=== PATIENT | female | born 1990 | race African-American/Black ===

== ENCOUNTER 2024-03-10 11:07 | Emergency (ER) | payer MEDICAID ==
[~2024-03-10] VITALS: Ht 170.2 cm; Wt 109.0 kg
[2024-03-10 11:23] VITALS: O2SAT 100
[2024-03-10] MEDS: PREDNISONE 20MG TABLET PO ONE (11:58)
[2024-03-10 12:07] VITALS: PULSE 100; RESP 20
[2024-03-10] MEDS: ALBUTEROL (0.083%) 2.5MG/3ML NEB HHN ONE (12:07)
[2024-03-10 12:15] VITALS: BP 122/87; PULSE 95; RESP 19; TEMP 97.8
[2024-03-10] MEDS ORDERED: P50 MT (12:22)
[2024-03-10] MEDS ORDERED: ALBU18HF2 IH (12:22)
== END 2024-03-10 12:35 | disposition home or self-care (01) ==
LOC: ER 11:18
DX: R05.9 Cough, unspecified (principal); R06.02 Shortness of breath; J45.909 Unspecified asthma, uncomplicated; Z91.013 Allergy to seafood; Z98.890 Other specified postprocedural states
CPT/HCPCS: 81025; 71045; 94640; 99283; J7512; Z7610 ×3

== ENCOUNTER 2024-05-26 10:10 | Emergency (ER) | payer MEDICAID, OTHER ==
[~2024-05-26] VITALS: Ht 172.7 cm; Wt 100.0 kg
[~2024-05-26 10:10] MED LIST: ALBU18HF2 IH; P50 MT
[2024-05-26 10:21] VITALS: O2SAT 99
[2024-05-26] MEDS ORDERED: COLC0.6C3 MT (12:35)
[2024-05-26] MEDS ORDERED: IBUP-2030 MT (12:35)
[2024-05-26] MEDS: KETOROLAC 30MG/ML VIAL IM ONE (12:45)
[2024-05-26] MEDS: COLCHICINE 0.6MG TABLET PO ONE (13:03)
[2024-05-26 13:08] VITALS: BP 140/75; PULSE 80; RESP 16; TEMP 37.16964; O2SAT 99
== END 2024-05-26 13:10 | disposition home or self-care (01) ==
LOC: ER 10:10
DX: M25.561 Pain in right knee (principal); Z91.013 Allergy to seafood; Z98.890 Other specified postprocedural states
CPT/HCPCS: 81025; 73562; 96372; 99283; J1885; Z7610 ×3; C1893